=== PATIENT | female | born 1950 | race Caucasian/White ===

== ENCOUNTER → 2024-01-20 11:50 | Outpatient (CLI) | payer MEDICARE, SELFPAY ==
[2024-01-20 21:46] LABS: Add Manual Diff / Slide Review NO; Basophils Absolute Auto 100 /uL (0-100); Basophils Percent Auto 1.3 % (0-2); Eosinophils Absolute Auto 200 /uL (0-450); Eosinophils Percent Auto 3.5 % (2-4); Hematocrit 30.7 % (36-46); Hemoglobin 9.6 g/dL (12.0-16.0); Lymphocytes Absolute Auto 500 /uL (1100-4500); Lymphocytes Percent Auto 9.4 % (25-40); Mean Corpuscular HGB Conc 31.4 % (30-36); Mean Corpuscular Hemoglobin 22.8 PG (26-34); Mean Corpuscular Volume 72.6 fL (80-100); Monocytes Absolute Auto 400 /uL (0-900); Monocytes Percent Auto 8.2 % (3-14); Neutrophils Absolute Auto 3800 /uL (1500-7000); Neutrophils Percent Auto 77.6 % (50-75); Platelet Count 354 X10^3/uL (150-400); Red Blood Cell Count 4.23 X10^6/uL (4.0-5.2); Red Cell Distribution Width 19.8 % (11.6-14.8)
[2024-01-20 22:05] LABS: Alanine Aminotransferase 19 IU/L (<35); Albumin 4.1 g/dL (3.5-5.0); Albumin Globulin Ratio 1.5 (1.0-2.8); Alkaline Phosphatase 60 U/L (38-126); Aspartate Aminotransferase 31 IU/L (14-36); BUN Creatinine Ratio 29.1 (6-22); Bilirubin Total 0.6 mg/dL (0.2-1.3); Blood Urea Nitrogen 23 mg/dL (7-17); Calcium 9.6 mg/dL (8.4-10.2); Carbon Dioxide 30 mmol/L (22-32); Chloride 103 mmol/L (98-107); Estimated Glomerular Filt Rate > 60 mL/min (>60); Globulin 2.8 g/dL (1.7-4.1); Glucose 112 mg/dL (80-110); HEMOLYSIS < 15 (0-50); Magnesium 2.1 mg/dL (1.6-2.3); Potassium 4.4 mmol/L (3.4-5.1); Sodium 138 mmol/L (137-145); Total Protein 6.9 g/dL (6.3-8.2)
== END ==
PROVIDERS: PCP Family Medicine; Visit Provider Family Medicine
DX: I10 Essential (primary) hypertension (principal); R25.2 Cramp and spasm; Z79.899 Other long term (current) drug therapy
CPT/HCPCS: 80053; 83735; 85025

== ENCOUNTER → 2024-02-08 14:00 | Outpatient (CLI) | payer MEDICARE, SELFPAY ==
[2024-02-08 19:10] LABS: Reticulocyte Count, Percent 1.1 % (1.1-2.6)
[2024-02-08 19:16] LABS: HEMOLYSIS < 15 (0-50); Iron 53 ug/dL (37-170)
[2024-02-08 19:17] LABS: Hematocrit 31.3 % (36-46); Hemoglobin 9.9 g/dL (12.0-16.0); Mean Corpuscular HGB Conc 31.7 % (30-36); Mean Corpuscular Hemoglobin 22.9 PG (26-34); Mean Corpuscular Volume 72.3 fL (80-100); Platelet Count 368 X10^3/uL (150-400); Red Blood Cell Count 4.33 X10^6/uL (4.0-5.2); Red Cell Distribution Width 19.3 % (11.6-14.8); White Blood Cell Count 4.2 X10^3/uL (4.5-11.0)
[2024-02-08 19:30] LABS: Percent Iron Saturation 14 % (15-50); Total Iron Binding Capacity 391 ug/dL (265-497); Transferrin 320 mg/dL (206-381)
[2024-02-08 20:16] LABS: Ferritin 8 ng/mL (11-264)
[2024-02-08 20:47] LABS: Folate 5.7 ng/mL (2.76-20.0); Vitamin B12 468 pg/mL (239-931)
== END ==
PROVIDERS: PCP Family Medicine; Visit Provider Family Medicine
DX: D64.9 Anemia, unspecified (principal); R25.2 Cramp and spasm; I10 Essential (primary) hypertension; C21.0 Malignant neoplasm of anus, unspecified; M62.838 Other muscle spasm; G12.23 Primary lateral sclerosis; F13.20 Sedative, hypnotic or anxiolytic dependence, uncomplicated; R63.4 Abnormal weight loss
CPT/HCPCS: 82607; 82728; 82746; 83540; 83550; 85027; 85045